=== PATIENT | female | born 1965 | race Caucasian/White ===

== ENCOUNTER 2019-05-18 16:30 | Inpatient (IN) | payer BC ==
[~2019-05-18] VITALS: Ht 152.4 cm; Wt 93.2 kg
[2019-05-18] MEDS ORDERED: ANTIDEPRESSANT (17:26)
[2019-05-18 18:10] LABS: BASOPHILS 0.4 % (0-2); EOSINOPHILS 4.3 % (0-7); HEMATOCRIT 44.9 % (36.0-48.0); HEMOGLOBIN 13.8 g/dL (12-16); IMMATURE GRANULOCYTES 0.4 % (0-5); LYMPHOCYTES 44.6 % (15-50); MCH 29.8 pg (26.0-34.0); MCHC 30.7 g/dL (31.0-37.0); MEAN PLATELET VOLUME 9.4 fL (7.4-10.4); MONOCYTES 8.2 % (2-11); NEUTROPHILS 42.1 % (40-80); PLATELET COUNT 330 10x3/uL (130-400); RBC 4.63 10x6/uL (4.00-5.40); RDW 13.3 % (11.5-14.5); WBC 7.9 10x3/uL (4.8-10.8)
[2019-05-18 18:20] LABS: CALC OSMOLALITY 290 mosm/kg (275-300); CALCIUM 9.1 mg/dL (8.5-10.1); CARBON DIOXIDE 29.1 mmol/L (21.0-32.0); CHLORIDE - SERUM 106 mmol/L (98-107); CREATININE - SERUM 1.1 mg/dL (0.6-1.3); GLUCOSE 112 mg/dL (74-106); POTASSIUM - SERUM 4.6 mmol/L (3.5-5.1); SODIUM 145 mmol/L (136-145); UREA NITROGEN 14 mg/dL (7-18); eGFR NON AFRICAN AMERICAN 55 mL/min (90-120)
[2019-05-18 18:39] LABS: ALKALINE PHOSPHATASE 161 U/L (30-120); BILIRUBIN - TOTAL 0.35 mg/dL (0.2-1.3); CKMB 0.4 U/L (0.0-3.6); CREATINE KINASE 52 UL (21-215); FERRITIN 48 ng/mL (3-244); PROTEIN - SERUM 7.4 g/dL (6.4-8.2)
[2019-05-18 18:41] LABS: ALT (SGPT) 1 U/L (10-68)
[2019-05-18 18:43] LABS: TROPONIN-I < 0.017 ng/mL (0.000-0.060)
[2019-05-18 18:52] LABS: ALBUMIN 3.5 g/dL (3.4-5.0)
[2019-05-18 20:15] LABS: BILIRUBIN NEGATIVE (NEGATIVE); GLUCOSE NEGATIVE (NEGATIVE); KETONE NEGATIVE (NEGATIVE); NITRITE NEGATIVE (NEGATIVE); SPECIFIC GRAVITY 1.015 (1.005-1.020); UROBILINOGEN NORMAL (NORMAL)
[2019-05-18 21:37] VITALS: BP 151/90
[2019-05-18 22:59] VITALS: BP 155/91
[2019-05-19 00:14] VITALS: BP 118/60
[2019-05-19] MEDS ORDERED: CYMBALTA30 MG PO (02:43)
[2019-05-19 03:20] VITALS: BP 136/66
[2019-05-19 06:25] LABS: BASOPHILS 0.3 % (0-2); EOSINOPHILS 4.2 % (0-7); HEMOGLOBIN 11.8 g/dL (12-16); IMMATURE GRANULOCYTES 0.3 % (0-5); LYMPHOCYTES 39.6 % (15-50); MCH 29.3 pg (26.0-34.0); MCHC 30.3 g/dL (31.0-37.0); MCV 96.8 fL (80.0-100.0); MEAN PLATELET VOLUME 9.4 fL (7.4-10.4); MONOCYTES 9.1 % (2-11); NEUTROPHILS 46.5 % (40-80); PLATELET COUNT 292 10x3/uL (130-400); RBC 4.03 10x6/uL (4.00-5.40); RDW 13.2 % (11.5-14.5); WBC 7.9 10x3/uL (4.8-10.8)
[2019-05-19 06:28] LABS: ALBUMIN 2.9 g/dL (3.4-5.0); ANION GAP 8.2 mmol/L (8-16); BILIRUBIN - TOTAL 0.31 mg/dL (0.2-1.3); CALCIUM 8.4 mg/dL (8.5-10.1); CARBON DIOXIDE 30.6 mmol/L (21.0-32.0); POTASSIUM - SERUM 4.8 mmol/L (3.5-5.1); PROTEIN - SERUM 6.1 g/dL (6.4-8.2)
[2019-05-19 08:11] VITALS: BP 138/83
[2019-05-19 11:47] VITALS: BP 131/81
[2019-05-19 12:09] VITALS: Ht 152.4 cm; Wt 93.2 kg
--- NOTE | 2019-05-19 14:52 | MORECARE ---
CASE MANAGEMENT DISCHARGE SUMMARY PATIENT: KALPANA CARRANZA UNIT: [id number] ADM DATE: 05/18/19 AGE: 53 : 61 SEX: F ROOM/BED: D.2109 AUTHOR: VIN NAIDU PHYSICIAN: REFERRING PHYSICIAN: MOUSTAPHA NOBLES MD DATE OF SERVICE: 05/19/19 Discharge Plan Patient Name: KALPANA CARRANZA [facility] [facility] 1965 Planned Disposition: Home Anticipated Discharge Date: Discharge Date: Expected LOS: Initial Reviewer: [email or web address] Initial Review Date: 05/19/2019 Generated: 05/19/19 3:51 pm DCPIA - Discharge Planning Initial Assessment Updated by [email or web address]: Marco A Johnson on 05/19/19 2:49 pm * Is the patient Alert and Oriented? Yes * How many steps to enter\exit or inside your home? 1-O/1-I * PCP DR. ESPANA * Pharmacy [facility] [place] * Preadmission Environment Home with Family * ADLs Independent * Equipment None * Other Equipment NO MEDICAL EQUIPMENT PROVIDER PREFERENCE * List name and contact numbers for known caregivers / representatives who currently or will assist patient after discharge: RICKY CARRANZA, SPOUSE, * Verbal permission to speak to the caregivers and representatives has been obtained from the patient. N/A * Community resources currently utilized None * Please name any agencies selected above. NONE * Additional services required to return to the preadmission environment? No * Can the patient safely return to the preadmission environment? Yes * Has this patient been hospitalized within the prior 30 days at any hospital? No Patient Name: KALPANA CARRANZA Page 42213 at 1452 All edits/amendments must be made on the electronic document DICTATION DATE: 05/19/19 145 BIOFUELS PRODUCTION ASSOCIATE: SONAM 05/19/19 145 RPT#: [id number] DC DATE: STATUS: ADM IN [facility] [address] [place] [address] END OF REPORT
--- NOTE | 2019-05-19 14:59 | MORECARE ---
CASE MANAGEMENT DISCHARGE SUMMARY PATIENT: KALPANA CARRANZA UNIT: [id number] ADM DATE: 05/18/19 AGE: 53 : 61 SEX: F ROOM/BED: D.2109 AUTHOR: ELYSIA,DOC PHYSICIAN: REFERRING PHYSICIAN: MOUSTAPHA NOBLES MD DATE OF SERVICE: 05/19/19 Discharge Plan Patient Name: KALPANA CARRANZA [facility] : 1965 Planned Disposition: Home Anticipated Discharge Date: Discharge Date: Expected LOS: Initial Reviewer: [email or web address] Initial Review Date: 05/19/2019 Generated: 05/19/19 3:58 pm DCP- Discharge Planning Updated by [email or web address]: Marco A Johnson on 05/19/19 1:[address] Patient Name: KALPANA CARRANZA Admission Status: ER Accout number: [id number] Admission Date: 05-18-2019 : 1965 Admission Diagnosis: Attending: MOUSTAPHA NOBLES Current LOS: 1 Anticipated DC Date: Planned Disposition: Home Primary Insurance: [employer] O Discharge Planning Comments: CM MET WITH PT IN ROOM TO DISCUSS DISCHARGE PLANNING AND NEEDS. PT REPORTS LIVING AT HOME INDEPENDENTLY WITH HER SPOUSE. PT HAS NO MEDICAL EQUIPMENT AND NO OUTSIDE SERVICES ASSISTING IN THE HOME. CM DISCUSSED AVAILABILITY OF HOME HEALTH, REHAB SERVICES AND MEDICAL EQUIPMENT. PT DENIES DISCHARGE NEEDS, REPORTS HER SPOUSE WILL PICK HER UP FOR DISCHARGE HOME. PATIENT PLANS TO DISCHARGE HOME WITH SPOUSE, HAS NO ANTICIPATED DISCHARGE NEEDS AND WILL BE TRANSPORTED HOME BY FAMILY. CM TO FOLLOW AND ASSIST IF NEEDED. Gate Keeper: Marco A Johnson DCPIA - Discharge Planning Initial Assessment Updated by [email or web address]: Marco A Johnson on 05/19/19 2:49 pm * Is the patient Alert and Oriented? Yes * How many steps to enter\exit or inside your home? 1-O/1-I * PCP DR. ESPANA * Pharmacy [facility] IN [place] * Preadmission Environment Home with Family * ADLs Independent * Equipment None * Other Equipment NO MEDICAL EQUIPMENT PROVIDER PREFERENCE * List name and contact numbers for known caregivers / representatives who currently or will assist patient after discharge: RICKY CARRANZA, SPOUSE, * Verbal permission to speak to the caregivers and representatives has been obtained from the patient. N/A * Community resources currently utilized None * Please name any agencies selected above. NONE * Additional services required to return to the preadmission environment? No * Can the patient safely return to the preadmission environment? Yes * Has this patient been hospitalized within the prior 30 days at any hospital? No Last DP export: 05/19/19 1:52 p Patient Name: KALPANA CARRANZA Page [id number] at 1459 All edits/amendments must be made on the electronic document DICTATION DATE: 05/19/191457 AIR MOTOR REPAIRER: SONAM 05/19/191457 RPT#: [id number] DC DATE: STATUS: ADM IN [facility] [address] [place] [address] END OF REPORT
[2019-05-19 17:00] VITALS: BP 138/81
[2019-05-19 19:48] VITALS: BP 151/59
[2019-05-20 05:06] VITALS: BP 145/83
[2019-05-20 06:21] LABS: BASOPHILS 0.3 % (0-2); EOSINOPHILS 5.7 % (0-7); HEMATOCRIT 40.6 % (36.0-48.0); HEMOGLOBIN 12.7 g/dL (12-16); IMMATURE GRANULOCYTES 0.3 % (0-5); LYMPHOCYTES 40.4 % (15-50); MCH 29.7 pg (26.0-34.0); MCHC 31.3 g/dL (31.0-37.0); MCV 94.9 fL (80.0-100.0); MEAN PLATELET VOLUME 9.3 fL (7.4-10.4); MONOCYTES 5.7 % (2-11); NEUTROPHILS 47.6 % (40-80); PLATELET COUNT 281 10x3/uL (130-400); RBC 4.28 10x6/uL (4.00-5.40); RDW 13.1 % (11.5-14.5); WBC 6.7 10x3/uL (4.8-10.8)
[2019-05-20 06:32] LABS: ANION GAP 10.3 mmol/L (8-16); BILIRUBIN - TOTAL 0.25 mg/dL (0.2-1.3); CALCIUM 8.4 mg/dL (8.5-10.1); CARBON DIOXIDE 30.3 mmol/L (21.0-32.0); CREATININE - SERUM 0.9 mg/dL (0.6-1.3); POTASSIUM - SERUM 4.6 mmol/L (3.5-5.1); PROTEIN - SERUM 5.9 g/dL (6.4-8.2)
[2019-05-20 07:30] VITALS: BP 127/80
[2019-05-20 11:00] VITALS: BP 141/84
[2019-05-20 15:00] VITALS: BP 123/72
[2019-05-20] MEDS ORDERED: AMBIEN10 MG PO (21:10)
[2019-05-21 03:59] VITALS: BP 132/80
[2019-05-21 06:08] LABS: HEPATITIS C ANTIBODY 0.2 S/CO RAT (0.0-0.9)
[2019-05-21 06:10] LABS: BASOPHILS 0.3 % (0-2); HEMATOCRIT 39.3 % (36.0-48.0); HEMOGLOBIN 12.3 g/dL (12-16); IMMATURE GRANULOCYTES 0.4 % (0-5); LYMPHOCYTES 39.9 % (15-50); MCHC 31.3 g/dL (31.0-37.0); MCV 95.9 fL (80.0-100.0); MEAN PLATELET VOLUME 9.4 fL (7.4-10.4); MONOCYTES 5.8 % (2-11); NEUTROPHILS 44.6 % (40-80); PLATELET COUNT 307 10x3/uL (130-400); RDW 13.1 % (11.5-14.5)
[2019-05-21 06:24] LABS: BILIRUBIN - TOTAL 0.24 mg/dL (0.2-1.3); CALCIUM 8.3 mg/dL (8.5-10.1); CARBON DIOXIDE 28.6 mmol/L (21.0-32.0); CREATININE - SERUM 0.9 mg/dL (0.6-1.3); PROTEIN - SERUM 6.4 g/dL (6.4-8.2)
[2019-05-21 06:31] LABS: ANION GAP 9.3 mmol/L (8-16); POTASSIUM - SERUM 3.9 mmol/L (3.5-5.1)
[2019-05-21 09:30] VITALS: BP 126/80
[2019-05-21 13:44] VITALS: BP 134/72
[2019-05-21 20:00] VITALS: BP 110/68
[2019-05-22] VITALS: BP 143/87
[2019-05-22 04:00] VITALS: BP 126/83
[2019-05-22 05:12] LABS: BASOPHILS 0.4 % (0-2); HEMATOCRIT 43.4 % (36.0-48.0); HEMOGLOBIN 13.3 g/dL (12-16); IMMATURE GRANULOCYTES 1.1 % (0-5); LYMPHOCYTES 29.9 % (15-50); MCH 29.8 pg (26.0-34.0); MCHC 30.6 g/dL (31.0-37.0); MCV 97.3 fL (80.0-100.0); MEAN PLATELET VOLUME 9.4 fL (7.4-10.4); MONOCYTES 6.1 % (2-11); NEUTROPHILS 53.5 % (40-80); PLATELET COUNT 350 10x3/uL (130-400); RBC 4.46 10x6/uL (4.00-5.40); RDW 13.4 % (11.5-14.5)
[2019-05-22 05:26] LABS: WBC 9.6 10x3/uL (4.8-10.8)
[2019-05-22 05:43] LABS: ALBUMIN 3.4 g/dL (3.4-5.0); ALKALINE PHOSPHATASE 273 U/L (30-120); ALT (SGPT) 416 U/L (10-68); BILIRUBIN - TOTAL 0.33 mg/dL (0.2-1.3); CALC OSMOLALITY 275 mosm/kg (275-300); CALCIUM 8.3 mg/dL (8.5-10.1); CARBON DIOXIDE 30.5 mmol/L (21.0-32.0); CHLORIDE - SERUM 103 mmol/L (98-107); CREATININE - SERUM 0.8 mg/dL (0.6-1.3); GLUCOSE 135 mg/dL (74-106); POTASSIUM - SERUM 4.2 mmol/L (3.5-5.1); PROTEIN - SERUM 7.1 g/dL (6.4-8.2); SODIUM 138 mmol/L (136-145); UREA NITROGEN 8 mg/dL (7-18); eGFR NON AFRICAN AMERICAN 79 mL/min (90-120)
--- NOTE | 2019-05-22 08:33 | MORECARE ---
CASE MANAGEMENT DISCHARGE SUMMARY PATIENT: KALPANA CARRANZA UNIT: [id number] ADM DATE: 05/18/19 AGE: 53 : 61 SEX: F ROOM/BED: D.2109 AUTHOR: ELYSIA,DOC PHYSICIAN: REFERRING PHYSICIAN: MOUSTAPHA NOBLES MD DATE OF SERVICE: 05/22/19 Discharge Plan Patient Name: KALPANA CARRANZA Facility: [facility]:[place] : 1965 Planned Disposition: Home Anticipated Discharge Date: Discharge Date: Expected LOS: Initial Reviewer: [email or web address] Initial Review Date: 05/19/2019 Generated: 05/22/19 9:33 am DCP- Discharge Planning Updated by [email or web address]: Marco A Johnson on 05/19/19 1:[address] Patient Name: KALPANA CARRANZA Admission Status: ER Accout number: [id number] Admission Date: 05-18-2019 : 1965 Admission Diagnosis: Attending: MOUSTAPHA NOBLES Current LOS: 1 Anticipated DC Date: Planned Disposition: Home Primary Insurance: [employer] O Discharge Planning Comments: CM MET WITH PT IN ROOM TO DISCUSS DISCHARGE PLANNING AND NEEDS. PT REPORTS LIVING AT HOME INDEPENDENTLY WITH HER SPOUSE. PT HAS NO MEDICAL EQUIPMENT AND NO OUTSIDE SERVICES ASSISTING IN THE HOME. CM DISCUSSED AVAILABILITY OF HOME HEALTH, REHAB SERVICES AND MEDICAL EQUIPMENT. PT DENIES DISCHARGE NEEDS, REPORTS HER SPOUSE WILL PICK HER UP FOR DISCHARGE HOME. PATIENT PLANS TO DISCHARGE HOME WITH SPOUSE, HAS NO ANTICIPATED DISCHARGE NEEDS AND WILL BE TRANSPORTED HOME BY FAMILY. CM TO FOLLOW AND ASSIST IF NEEDED. Metrology Manager: Marco A Johnson DCPIA - Discharge Planning Initial Assessment Updated by [email or web address]: Marco A Johnson on 05/19/19 2:49 pm * Is the patient Alert and Oriented? Yes * How many steps to enter\exit or inside your home? 1-O/1-I * PCP DR. ESPANA * Pharmacy [facility] IN [place] * Preadmission Environment Home with Family * ADLs Independent * Equipment None * Other Equipment NO MEDICAL EQUIPMENT PROVIDER PREFERENCE * List name and contact numbers for known caregivers / representatives who currently or will assist patient after discharge: RICKY CARRANZA, SPOUSE, * Verbal permission to speak to the caregivers and representatives has been obtained from the patient. N/A * Community resources currently utilized None * Please name any agencies selected above. NONE * Additional services required to return to the preadmission environment? No * Can the patient safely return to the preadmission environment? Yes * Has this patient been hospitalized within the prior 30 days at any hospital? No Last DP export: 05/19/19 1:59 p Patient Name: KALPANA CARRANZA Page 11945 at 0833 All edits/amendments must be made on the electronic document DICTATION DATE: 05/22/19832 RAND BUTTING MACHINE OPERATOR: DM 05/22/19832 RPT#: [id number] DC DATE: STATUS: ADM IN [facility] [address] [place] [address] END OF REPORT
[2019-05-22 10:54] VITALS: BP 111/64
[2019-05-22 12:00] VITALS: BP 92/53
[2019-05-22] MEDS ORDERED: LEVOFLOXACIN500 MG PO (12:43)
[2019-05-22] MEDS ORDERED: CLEOCIN HCL300 MG PO (12:43)
[2019-05-22] MEDS ORDERED: MUCINEX DM ER1 EAC1 PO (12:44)
[2019-05-22] MEDS ORDERED: FLUTICASONE PRO16 GM NASAL (12:45)
[2019-05-22] MEDS ORDERED: TESSALON PERLE100 MG PO (12:45)
[2019-05-22] MEDS ORDERED: SINGULAIR10 MG PO (12:45)
[2019-05-22] MEDS ORDERED: PROVENTIL/2.5 MG/3 M INH (13:27)
--- NOTE | 2019-05-22 13:27 | MORECARE ---
CASE MANAGEMENT DISCHARGE SUMMARY PATIENT: KALPANA CARRANZA UNIT: [id number] ADM DATE: 05/18/19 AGE: 53 : 61 SEX: F ROOM/BED: D.2109 AUTHOR: ELYSIA,DOC PHYSICIAN: REFERRING PHYSICIAN: MOUSTAPHA NOBLES MD DATE OF SERVICE: 05/22/19 Discharge Plan Patient Name: KALPANA CARRANZA Facility: [facility]:[place] : 1965 Planned Disposition: Home Anticipated Discharge Date: Discharge Date: Expected LOS: Initial Reviewer: [email or web address] Initial Review Date: 05/19/2019 Generated: 05/22/19 2:27 pm DCP- Discharge Planning Updated by [email or web address]: Marco A Johnson on 05/19/19 1:[address] Patient Name: KALPANA CARRANZA Admission Status: ER Accout number: [id number] Admission Date: 05-18-2019 : 1965 Admission Diagnosis: Attending: MOUSTAPHA NOBLES Current LOS: 1 Anticipated DC Date: Planned Disposition: Home Primary Insurance: [employer] O Discharge Planning Comments: CM MET WITH PT IN ROOM TO DISCUSS DISCHARGE PLANNING AND NEEDS. PT REPORTS LIVING AT HOME INDEPENDENTLY WITH HER SPOUSE. PT HAS NO MEDICAL EQUIPMENT AND NO OUTSIDE SERVICES ASSISTING IN THE HOME. CM DISCUSSED AVAILABILITY OF HOME HEALTH, REHAB SERVICES AND MEDICAL EQUIPMENT. PT DENIES DISCHARGE NEEDS, REPORTS HER SPOUSE WILL PICK HER UP FOR DISCHARGE HOME. PATIENT PLANS TO DISCHARGE HOME WITH SPOUSE, HAS NO ANTICIPATED DISCHARGE NEEDS AND WILL BE TRANSPORTED HOME BY FAMILY. CM TO FOLLOW AND ASSIST IF NEEDED. Supervisor Grinding: Marco A Johnson DCPIA - Discharge Planning Initial Assessment Updated by [id number]: Marco A Johnson on 05/19/19 2:49 pm * Is the patient Alert and Oriented? Yes * How many steps to enter\exit or inside your home? 1-O/1-I * PCP DR. ESPANA * [facility]acy [facility] [place] * Preadmission Environment Home with Family * ADLs Independent * Equipment None * Other Equipment NO MEDICAL EQUIPMENT PROVIDER PREFERENCE * List name and contact numbers for known caregivers / representatives who currently or will assist patient after discharge: RICKY CARRANZA, SPOUSE, * Verbal permission to speak to the caregivers and representatives has been obtained from the patient. N/A * Community resources currently utilized None * Please name any agencies selected above. NONE * Additional services required to return to the preadmission environment? No * Can the patient safely return to the preadmission environment? Yes * Has this patient been hospitalized within the prior 30 days at any hospital? No External Providers External Provider: Myah Coyle Contact Date: 05/22/2019 Service Request Date: Service Type: Resolution: Reviewer: Comments: Last DP export: 05/22/19 7:33 am Patient Name: KALPANA CARRANZA Page 12964 at 1327 All edits/amendments must be made on the electronic document DICTATION DATE: 05/22/19 1327 PLANT ATTENDANT: SONAM 05/22/19 1327 RPT#: [id number] DC DATE: STATUS: ADM IN [facility] [address] [place] [address] END OF REPORT
--- NOTE | 2019-05-22 13:42 | MORECARE ---
CASE MANAGEMENT DISCHARGE SUMMARY PATIENT: KALPANA CARRANZA UNIT: [id number] ADM DATE: 05/18/19 AGE: 53 : 61 SEX: F ROOM/BED: D.7666 AUTHOR: ELYSIA,DOC PHYSICIAN: REFERRING PHYSICIAN: MOUSTAPHA NOBLES MD DATE OF SERVICE: 05/22/19 Discharge Plan Patient Name: KALPANA CARRANZA Facility: [facility]:[place] : 1965 Planned Disposition: Home Anticipated Discharge Date: 05/22/19 Discharge Date: Expected LOS: 4 Initial Reviewer: [email or web address] Initial Review Date: 05/19/2019 Generated: 05/22/19 2:41 pm Comments DCP- Discharge Planning Updated by [id number]: Marco A Johnson on 05/22/19 12:[address] Patient Name: KALPANA CARRANZA Encounter No: [id number] : 1965 Primary Insurance: [employer] Anticipated DC Date: 05-22-2019 Planned Disposition: Home DCP follow-up note: CM RECEIVED ORDER FOR NEBULIZER, MET WITH PT IN ROOM, DISCUSSED NEED FOR NEBULIZER. PT HAS TAKEN ALBUTEROL TREATMENTS AT HOME IN THE PAST AND IS NOT SURE IF SHE HAS A NEBULIZER. PT SIGNED CHOICE FOR [facility] TO OBTAIN A NEBUIZER FROM. CM NOTIFIED [facility], . CM FAXED REFERRAL TO [facility] AT [phone]. PT DOES NOT HAVE QUALIFYING DIAGNOSIS THAT INSURANCE WILL PAY FOR NEBULIZER, OUT OF POCKET COTS IS $90 FROM [facility]. CM DISCUSSED WITH PT WHO CALLED HER SPOUSE, PT HAS A NEBLUIZER AT HOME AND REPORTS IT WORKS. CM CANCELLED ORDER FOR NEBULIZER. CAN LINE EXAMINER NURSE NOTIFIED. Marco A Johnson, CASE MANAGEMENT DCP- Discharge Planning Updated by [email or web address]: Marco A Johnson on 05/19/19 1:[address] Patient Name: KALPANA CARRANZA Admission Status: ER Accout number: [id number] Admission Date: 05-18-2019 : 1965 Admission Diagnosis: Attending: MOUSTAPHA NOBLES Current LOS: 1 Anticipated DC Date: Planned Disposition: Home Primary Insurance: [employer] H[employer] Discharge Planning Comments: CM MET WITH PT IN ROOM TO DISCUSS DISCHARGE PLANNING AND NEEDS. PT REPORTS LIVING AT HOME INDEPENDENTLY WITH HER SPOUSE. PT HAS NO MEDICAL EQUIPMENT AND NO OUTSIDE SERVICES ASSISTING IN THE HOME. CM DISCUSSED AVAILABILITY OF HOME HEALTH, REHAB SERVICES AND MEDICAL EQUIPMENT. PT DENIES DISCHARGE NEEDS, REPORTS HER SPOUSE WILL PICK HER UP FOR DISCHARGE HOME. PATIENT PLANS TO DISCHARGE HOME WITH SPOUSE, HAS NO ANTICIPATED DISCHARGE NEEDS AND WILL BE TRANSPORTED HOME BY FAMILY. CM TO FOLLOW AND ASSIST IF NEEDED. Churn Driller: Marco A Johnson DCPIA - Discharge Planning Initial Assessment Updated by [email or web address]: Marco A Johnson on 05/19/19 2:49 pm * Is the patient Alert and Oriented? Yes * How many steps to enter\exit or inside your home? 1-O/1-I * PCP DR. ESPANA * Pharmacy [facility] IN [place] * Preadmission Environment Home with Family * ADLs Independent * Equipment None * Other Equipment NO MEDICAL EQUIPMENT PROVIDER PREFERENCE * List name and contact numbers for known caregivers / representatives who currently or will assist patient after discharge: RICKY CARRANZA, SPOUSE, * Verbal permission to speak to the caregivers and representatives has been obtained from the patient. N/A * Community resources currently utilized None * Please name any agencies selected above. NONE * Additional services required to return to the preadmission environment? No * Can the patient safely return to the preadmission environment? Yes * Has this patient been hospitalized within the prior 30 days at any hospital? No Last DP export: 05/22/19 12:27 pm Patient Name: KALPANA CARRANZA Page 15611 at 1342 All edits/amendments must be made on the electronic document DICTATION DATE: 05/22/19 1341 CONSUMER INSIGHTS INTERN: SONAM 05/22/19 1341 RPT#: [id number] DC DATE: STATUS: ADM IN [facility] [address] [place] [address] END OF REPORT
--- NOTE | 2019-05-22 13:50 | MORECARE ---
CASE MANAGEMENT DISCHARGE SUMMARY PATIENT: KALPANA CARRANZA UNIT: [id number] ADM DATE: 05/18/19 AGE: 53 : 61 SEX: F ROOM/BED: D.2998 AUTHOR: ELYSIA,DOC PHYSICIAN: REFERRING PHYSICIAN: MOUSTAPHA NOBLES MD DATE OF SERVICE: 05/22/19 Discharge Plan Patient Name: KALPANA CARRANZA Facility: [facility]:[place] : 1965 Planned Disposition: Home Anticipated Discharge Date: 05/22/19 Discharge Date: Expected LOS: 4 Initial Reviewer: [email or web address] Initial Review Date: 05/19/2019 Generated: 05/22/19 2:50 pm Comments DCP- Discharge Planning Updated by [email or web address]: Marco A Johnson on 05/22/19 12:[address] Patient Name: KALPANA CARRANZA Encounter No: [id number] : 1965 Primary Insurance: [employer] Anticipated DC Date: 05-22-2019 Planned Disposition: Home DCP follow-up note: CM RECEIVED ORDER FOR NEBULIZER, MET WITH PT IN ROOM, DISCUSSED NEED FOR NEBULIZER. PT HAS TAKEN ALBUTEROL TREATMENTS AT HOME IN THE PAST AND IS NOT SURE IF SHE HAS A NEBULIZER. PT SIGNED CHOICE FOR [facility] TO OBTAIN A NEBUIZER FROM. CM NOTIFIED [facility], . CM FAXED REFERRAL TO [facility] AT [phone]. PT DOES NOT HAVE QUALIFYING DIAGNOSIS THAT INSURANCE WILL PAY FOR NEBULIZER, OUT OF POCKET COTS IS $90 FROM [facility]. CM DISCUSSED WITH PT WHO CALLED HER SPOUSE, PT HAS A NEBLUIZER AT HOME AND REPORTS IT WORKS. CM CANCELLED ORDER FOR NEBULIZER. MEAL PACKER NURSE NOTIFIED. Marco A Johnson, CASE MANAGEMENT Appended by Marco A Johnson on 05/22/2019 13:47 CDT: CM ASSISTED PT WITH CALLING HER [employer] AND WAS NOTIFIED PT'S COPAY IS $15 FOR 30 DAY SUPPLY OF ALBUTEROL. PT REPORTS ABILITY TO AFFORD MEDICATION AND DENIES FURTHER DISCHARGE NEEDS. BARI MCCRAY DCP- Discharge Planning Updated by [email or web address]: Marco A Johnson on 3/30/20 1:[address] Patient Name: KALPANA CARRANZA Admission Status: ER Accout number: [id number] Admission Date: 05-18-2019 : 1965 Admission Diagnosis: Attending: MOUSTAPHA NOBLES Current LOS: 1 Anticipated DC Date: Planned Disposition: Home Primary Insurance: [employer] O Discharge Planning Comments: CM MET WITH PT IN ROOM TO DISCUSS DISCHARGE PLANNING AND NEEDS. PT REPORTS LIVING AT HOME INDEPENDENTLY WITH HER SPOUSE. PT HAS NO MEDICAL EQUIPMENT AND NO OUTSIDE SERVICES ASSISTING IN THE HOME. CM DISCUSSED AVAILABILITY OF HOME HEALTH, REHAB SERVICES AND MEDICAL EQUIPMENT. PT DENIES DISCHARGE NEEDS, REPORTS HER SPOUSE WILL PICK HER UP FOR DISCHARGE HOME. PATIENT PLANS TO DISCHARGE HOME WITH SPOUSE, HAS NO ANTICIPATED DISCHARGE NEEDS AND WILL BE TRANSPORTED HOME BY FAMILY. CM TO FOLLOW AND ASSIST IF NEEDED. Machine Programmer: Marco A Johnson DCPIA - Discharge Planning Initial Assessment Updated by [id number]: Marco A Johnson on 05/19/19 2:49 pm * Is the patient Alert and Oriented? Yes * How many steps to enter\exit or inside your home? 1-O/1-I * PCP DR. ESPANA * [facility]acy [facility] * Preadmission Environment Home with Family * ADLs Independent * Equipment None * Other Equipment NO MEDICAL EQUIPMENT PROVIDER PREFERENCE * List name and contact numbers for known caregivers / representatives who currently or will assist patient after discharge: RICKY CARRANZA, SPOUSE, * Verbal permission to speak to the caregivers and representatives has been obtained from the patient. N/A * Community resources currently utilized None * Please name any agencies selected above. NONE * Additional services required to return to the preadmission environment? No * Can the patient safely return to the preadmission environment? Yes * Has this patient been hospitalized within the prior 30 days at any hospital? No Coverage Notice Reviewer: [id number] - Marco A Johnson Notice Issued Date-Time: 05/22/2019 13:20 Notice Type: Patient Choice Letter Notice Delivered To: Patient Relationship to Patient: Supervisor Color Paste Mixing Name: Delivery Method: HAND - Hand Delivered Zuleima Days: Prior Verbal Notification: Recipient Understood Notice: Yes Recipient Signature: Yes Med Rec Note Co-signed by Attending: Coverage Notice Comment: OLGA Meade DP export: 05/22/19 12:42 pm Patient Name: KALPANA CARRANZA Page [id number] at 1350 All edits/amendments must be made on the electronic document DICTATION DATE: 05/22/19 1350 INTELLIGENCE ENGINEER: SONAM 05/22/19 1350 RPT#: [id number] DC DATE: STATUS: ADM IN [facility] [address] [place] [address] END OF REPORT
== END 2019-05-22 16:03 | disposition home or self-care (01) | DRG 871 ==
LOC: D.ER 16:30 → D.M2 22:28
PROVIDERS: Family Medicine; ADMIT Internal Medicine Nephrology; ATTEND Internal Medicine Nephrology
DX: A41.9 Sepsis, unspecified organism (principal); J18.9 Pneumonia, unspecified organism; D64.9 Anemia, unspecified; F32.9 Major depressive disorder, single episode, unspecified; R91.1 Solitary pulmonary nodule; J30.9 Allergic rhinitis, unspecified; G47.00 Insomnia, unspecified; Z03.818 Encounter for observation for suspected exposure to other biological agents ruled out